=== PATIENT | female | born 1975 | race Caucasian/White ===

== ENCOUNTER 2018-12-08 09:00 | Outpatient (RCR) | payer OTHER ==
[2018-12-15] MEDS ORDERED: NP THYROID60 MG PO (10:37)
== END 2018-12-25 ==
LOC: PT 09:00
PROVIDERS: ATTEND Specialist
DX: S83.221D Peripheral tear of medial meniscus, current injury, right knee, subsequent encounter (principal); M72.2 Plantar fascial fibromatosis

== ENCOUNTER → 2018-12-19 | Day surgery (SDC) | payer BC, OTHER ==
[~2018-12-19] MED LIST: ACETAMINOPHEN 1000 MG/100 ML IV ONE; CEFAZOLIN SOD 1 GM/NS 50ML 50 ML IV ONE; DEXAMETHASONE SOD PHOS INJ 4 MG/ML VIAL ONE; FENTANYL CITRATE/PF 100MCG/2 ML INJ ONE; KETOROLAC TROMETHAMINE 30 MG/ML VIAL ONE; LIDOCAINE HCL 2% LOCAL INJ 5 ML SDV VIAL INJ ONE; MIDAZOLAM HCL 2 MG/2 ML VIAL ONE; NP THYROID60 MG PO; ONDANSETRON HCL INJ 2MG/ML 2ML 2 MG/ML VIAL ONE; PROPOFOL IV EMULSION 10 MG/ML 20 ML VIAL ONE; SEVOFLURANE INHAL SOLN 250 ML PEN BTL ONE
[2018-12-19 13:45] VITALS: BP 134/69
--- NOTE | 2018-12-19 20:12 | Operative Report ---
DATE OF PROCEDURE: 12/19/2018 SURGEON: Fede Canales MD JUNIOR NETWORK ENGINEER: Nicko Tran, certified PA. PREOPERATIVE DIAGNOSIS: Right knee medial meniscal tear. 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 PROCEDURE: Right knee arthroscopy, resection of medial parapatellar plica. INDICATIONS: The patient is a 43-year-old lady, who has right knee pain. The symptoms are mechanical. She has an MRI, which suggest she has a tear of the medial meniscus. She has failed conservative management and would like to proceed with arthroscopy. The risks and benefits have been discussed. She states she understands and wishes to proceed. PROCEDURE IN DETAIL: The patient was brought to the operating room and placed under general anesthetic. Her right lower extremity was prepped and draped in a sterile manner. A preoperative time-out was performed. A tourniquet placed on the upper thigh, had been inflated to 300 mmHg. Standard arthroscopy portals were established. The knee was insufflated with sterile saline and systematically inspected. The patellofemoral groove was well preserved. There was a large medial parapatellar plica. This obscured some of the medial view. The medial meniscus was inspected and probed. There was no evidence of any tear. The articular surface of the medial compartment was also well preserved. The cruciate ligaments were normal and stable. The lateral compartment was also carefully inspected and probed. There was no evidence of meniscal tear or wear in the lateral compartment. The medial plica was further inspected. There was noted to be an obvious kissing lesion on the medial femoral condyle. We elected to resect the medial parapatellar plica. This was done with a mechanical shaver before and after photographs were taken. The arthroscopic instruments were then removed after thoroughly irrigating the knee. The incisions were closed with nylon stitches. A sterile bandage was applied. She was extubated and transported to the recovery room in stable condition. There was no blood loss and all needle and sponge counts were correct. Fede Canales MD DR/NEO /[id number]
== END | disposition home or self-care (01) ==
LOC: OR 10:19
PROVIDERS: ATTEND Specialist
DX: M67.51 Plica syndrome, right knee (principal); Z98.84 Bariatric surgery status; Z90.49 Acquired absence of other specified parts of digestive tract; E03.9 Hypothyroidism, unspecified; Z86.73 Personal history of transient ischemic attack (TIA), and cerebral infarction without residual deficits; Z01.812 Encounter for preprocedural laboratory examination
CPT/HCPCS: 29875; 81025; J0131; J0690; J1100; J1885; J2001; J2250; J2405; J2704; J3010

== ENCOUNTER → 2019-01-19 | Day surgery (SDC) | payer BC, OTHER ==
--- NOTE | 2019-01-05 10:02 | Diagnostic Imaging Report ---
EXAMINATION: CHEST 2 VIEWS INDICATION: Pre-operative COMPARISON: None FINDINGS: LINES/TUBES:None LUNGS:The lungs are well-inflated. No focal consolidation or pulmonary edema. PLEURA:No pleural effusion or pneumothorax. MEDIASTINUM:The cardiomediastinal silhouette appears normal in size and shape. BONES/SOFT TISSUES:No acute osseous injury. ABDOMEN:No free air under the diaphragm. Surgical clips and chain sutures in the upper abdomen. IMPRESSION: No focal pneumonia or pulmonary edema. Signed by: Hi Robledo MD on 01/05/2019 9:58 AM
[2019-01-05 10:12] LABS: BASOPHILS % 0.8 % (0.0-1.0); EOSINOPHILS # (AUTO) 0.1 (0.0-0.4); EOSINOPHILS % 2.3 % (0.0-6.0); HEMOGLOBIN 10.9 g/dL (12.0-16.0); LYMPHOCYTES # (AUTO) 1.7 (1.0-3.2); LYMPHOCYTES % 32.1 % (18.0-39.1); MEAN CORPUSCULAR HEMOGLOBIN 27.9 pg (28-32); MEAN CORPUSCULAR HGB CONC 32.1 g/dL (31-35); MEAN CORPUSCULAR VOLUME 87.2 fL (81-99); MONOCYTES # (AUTO) 0.5 (0.2-0.8); MONOCYTES % 9.9 % (4.4-11.3); NEUTROPHILS # (AUTO) 2.8 (2.1-6.9); NEUTROPHILS % 54.7 % (38.7-80.0); PLATELET COUNT 320 x10e3/uL (140-360); RED CELL DISTRIBUTION WIDTH 14.9 % (11.7-14.4)
[2019-01-05 10:41] LABS: ANION GAP 10.3 mmol/L (8-16); BLOOD UREA NITROGEN 11 mg/dL (7-26); BUN/CREATININE RATIO 13 (6-25); CALCIUM 9.6 mg/dL (8.4-10.2); CARBON DIOXIDE 26 mmol/L (22-29); CHLORIDE 107 mmol/L (98-107); CREATININE, SERUM 0.84 mg/dL (0.57-1.11); EST GLOMERULAR FILTRATION RATE > 60 ML/MIN (60-); GLUCOSE 74 mg/dL (74-118); POTASSIUM 4.3 mmol/L (3.5-5.1); SODIUM 139 mmol/L (136-145)
[~2019-01-19] MED LIST changes: -ACETAMINOPHEN 1000 MG/100 ML IV ONE; +BUPIVACAINE HCL 0.5% INJ 30 ML VIAL INJ ONE; +CEFAZOLIN SOD 1 GM/NS 50ML 100 ML IV ONE; -CEFAZOLIN SOD 1 GM/NS 50ML 50 ML IV ONE; +HYDROCODONE/APAP 5MG-325MG TAB ONE; +IBUPROFEN400 MG PO; +MAXALT10 MG PO; +NEOSTIGMINE 1 MG/ML 10ML VIAL ONE
--- OUTSIDE RECORDS SUMMARY | 2019-01-19 05:40 | XMS REPORT ---
Author [facility] Address Unknown Phone Unavailable Care Team Providers Care Design Project Manager Name Role Phone RENETTA CHILDRESS Unavailable Unavailable Problems This patient has no known problems. Allergies, Adverse Reactions, Alerts This patient has no known allergies or adverse reactions. Medications This patient has no known medications. Results Test Description Test Time Test Comments Text Results Atomic Results Result Comments CHEST 2 VIEWS 2019-01-05 09:57:00 [place] [address] Patient Name: JUMA ARMAS MR #: [id number] : 1975 Age/Sex: 43/F Req #: [id number] [facility] Physician: Ordered by: RENETTA CHILDRESS DPM Report #: [id number] Location: OR Room/Bed: Procedure: [id number] DX/CHEST 2 VIEWS Exam Date: 01/05/19 Exam Time: 30 REPORT STATUS: Signed EXAMINATION: CHEST 2 VIEWS INDICATION: Pre-operative COMPARISON: None FINDINGS: LINES/TUBES:None LUNGS:The lungs are well-inflated. No focal consolidation or pulmonary edema. PLEURA:No pleural effusion or pneumothorax. MEDIASTINUM:The cardiomediastinal silhouette appears normal in size and shape. BONES/SOFT TISSUES:No acute osseous injury. ABDOMEN:No free air under the diaphragm. Surgical clips and chain sutures in the upper abdomen. IMPRESSION: No focal pneumonia or pulmonary edema. Signed by: Oscar Robledo MD on 01/05/2019 9:58 AM Dictated By: OSCAR ROBLEDO MD 7 Transcribed By: PALMIRA on 01/05/19957 COPY TO: RENETTA CHILDRESS DPM
[2019-01-19 09:40] VITALS: BP 128/77
--- NOTE | 2019-01-20 23:27 | Operative Report ---
DATE OF PROCEDURE: 01/19/2019 SURGEON: Gideon Faulkner DPM ROOM NUMBER: [facility]. PREOPERATIVE DIAGNOSIS: Contracted plantar fascia with heel spur, left foot. POSTOPERATIVE DIAGNOSIS: Contracted plantar fascia with heel spur, left foot. TITLE OF THE OPERATION: Endoscopic plantar fasciotomy of the left foot. ANESTHESIA: General endotracheal. HEMOSTASIS: Left thigh tourniquet at 350 mmHg. PROCEDURE IN DETAIL: The patient was taken to the operating room in a mildly sedated state and placed upon the operating table in supine position. Following induction of general anesthetic, the left lower extremity was elevated to 60 degrees to exsanguinate before inflating the pneumatic thigh tourniquet to 350 mmHg to create hemostasis. Left lower extremity was placed upon the operating table prior to performing the following procedure. Procedure #1 is the endoscopic plantar fasciotomy. A medial stab incision was placed and the plantar fascia was identified in the plantar medial aspect of the calcaneus at the insertion. The area was dissected slightly distally and the cannula was inserted allowing it to cross the plantar fascia just plantar to the plantar fascia and dorsal to the plantar fat pad. The cannula exited on the lateral aspect. A hook knife was used to identify the medial leading edge of the plantar fascia and utilizing a through and through stroke, the medial plantar fascial band was elongated to allow for relaxation of the plantar fascia in the medial component. The central component of the fascia was noted to be adequately elongated and strong. The area was irrigated with copious amounts of sterile saline solution. Deep closure was unnecessary and skin closure with 4-0 nylon. The areas of surgery then blocked with 0.5 Marcaine and Decadron [place]. Human tissue allograft was inserted to help facilitate healing of the plantar fascia and skin structures. The area was then positioned with the appropriate mildly compressive dressings and the patient will remain in a boot postoperatively. LAUREN Hines/KATL /[id number]
== END | disposition home or self-care (01) ==
LOC: OR 05:35
PROVIDERS: ATTEND Podiatrist Foot Surgery
DX: M72.2 Plantar fascial fibromatosis (principal); Z01.810 Encounter for preprocedural cardiovascular examination; Z01.812 Encounter for preprocedural laboratory examination; Z01.818 Encounter for other preprocedural examination; M77.32 Calcaneal spur, left foot
CPT/HCPCS: 28104; 29893; 36415; 71046; 80048; 81025; 85025; 93005; J0690; J1100; J1885; J2001; J2250; J2405; J2704; J2710; J3010; Q4100

== ENCOUNTER → 2022-03-12 | Day surgery (SDC) | payer BC, OTHER ==
[2022-03-10 14:28] LABS: BASOPHILS # (AUTO) 0.1 (0.0-0.1); BASOPHILS % 0.7 % (0.0-1.0); EOSINOPHILS # (AUTO) 0.3 (0.0-0.4); EOSINOPHILS % 3.4 % (0.0-6.0); HEMATOCRIT 40.8 % (34.2-44.1); HEMOGLOBIN 12.6 g/dL (12.0-16.0); LYMPHOCYTES # (AUTO) 2.1 (1.0-3.2); LYMPHOCYTES % 25.3 % (18.0-39.1); MEAN CORPUSCULAR HEMOGLOBIN 30.4 pg (28-32); MEAN CORPUSCULAR HGB CONC 30.9 g/dL (31-35); MEAN CORPUSCULAR VOLUME 98.6 fL (81-99); MONOCYTES # (AUTO) 0.7 (0.2-0.8); MONOCYTES % 7.9 % (4.4-11.3); NEUTROPHILS # (AUTO) 5.2 (2.1-6.9); NEUTROPHILS % 62.6 % (38.7-80.0); PLATELET COUNT 243 x10e3/uL (140-360); RED BLOOD COUNT 4.14 x10e6/uL (3.6-5.1); RED CELL DISTRIBUTION WIDTH 13.1 % (11.7-14.4)
[2022-03-10 14:47] LABS: ANION GAP 12.4 mmol/L (8-16); CALCIUM 8.9 mg/dL (8.4-10.2); CREATININE, SERUM 0.81 mg/dL (0.57-1.11); POTASSIUM 4.4 mmol/L (3.5-5.1)
[~2022-03-12] MED LIST changes: +ACETAMINOPHEN 1000 MG/100 ML 100 ML IV ONE; +AMBIEN5 MG PO; +B12 INJ; -CEFAZOLIN SOD 1 GM/NS 50ML 100 ML IV ONE; +CEFAZOLIN SODIUM 2 GM ONE; +DEXAMETHASONE SOD PHOS INJ 4 MG/ML SDV ONE; -DEXAMETHASONE SOD PHOS INJ 4 MG/ML VIAL ONE; -HYDROCODONE/APAP 5MG-325MG TAB ONE; +HYDROMORPHONE 1MG/1ML INJ ONE; -KETOROLAC TROMETHAMINE 30 MG/ML VIAL ONE; -LIDOCAINE HCL 2% LOCAL INJ 5 ML SDV VIAL INJ ONE; +MELATONIN3 MG PO; +MULTIVITAMINS1 EAC8 PO; +POVIDONE IODINE 0.05% 0.05 % ML PO ONE; -SEVOFLURANE INHAL SOLN 250 ML PEN BTL ONE; +VITAMIN D310 MCG
[2022-03-12 16:45] VITALS: BP 135/66
== END | disposition home or self-care (01) ==
LOC: OR 10:44
PROVIDERS: ATTEND Podiatrist Foot Surgery
DX: M72.2 Plantar fascial fibromatosis (principal); M77.31 Calcaneal spur, right foot; K21.9 Gastro-esophageal reflux disease without esophagitis; G43.909 Migraine, unspecified, not intractable, without status migrainosus; Z01.810 Encounter for preprocedural cardiovascular examination; Z01.812 Encounter for preprocedural laboratory examination; Z01.818 Encounter for other preprocedural examination; Z79.899 Other long term (current) drug therapy
CPT/HCPCS: 29893; 36415; 71046; 80048; 85025; 93005; J0131; J1100; J1170; J2250; J2405; J2704; J2710; J3010